=== PATIENT | female | born 1935 | race Caucasian/White ===

== ENCOUNTER 2018-07-29 12:03 | Inpatient (IN) ==
[2018-07-29 13:29] LABS: Basophils # 0.1 10*3/uL (0.0-0.2); Basophils % 0.4 % (0.0-0.8); Eosinophils # 0.1 10*3/uL (0.0-0.87); Eosinophils % 1.1 % (0.00-10.9); Hematocrit 40.1 VOL% (35.7-47.0); Hemoglobin 13.2 GM/DL (12.0-16.0); Immature Granulocytes % 0.6 %; Immature Granulocytes Absolute 0.07 #; Lymphocytes # 0.9 10*3/uL (1.4-4.0); Lymphocytes % 7.7 % (21.3-54.2); Mean Corpuscular HGB Conc 32.9 GM/DL (32-36); Mean Corpuscular Hemoglobin 28 PG (27-34); Mean Platelet Volume 11.2 FL (9.6-12.0); Monocytes # 0.5 10*3/uL (0.11-0.8); Monocytes % 4.3 % (1.7-12.7); Neutrophils # 9.7 10*3/uL (1.4-7.4); Neutrophils % 85.9 % (38.7-73.9); Platelet Count 155 T/CUMM (130-400); Red Blood Count 4.72 MC/CUMM (3.8-5.5); Red Cell Distribution Width 14.7 % (9.3-17.3); White Blood Count 11.3 T/CUMM (4-12)
[2018-07-29 13:41] LABS: INR 1.1; PT Patient Result 11.2 SECS; Partial Thromboplastin Time 23.4 SECS (0-40)
[2018-07-29 13:49] LABS: Alanine Aminotransferase 32 U/L (13-56); Albumin 3.6 G/DL (3.4-5.0); Alkaline Phosphatase 108 U/L (45-117); Aspartate Amino Transferase 25 U/L (0-37); Blood Urea Nitrogen 22 MG/DL (7-18); Calcium 9.2 MG/DL (8.5-10.1); Glucose 112 MG/DL (74-106); Osmolality,Calculated 280.5 MOS/KG (273-304); Sodium 139 MMOL/L (136-145); Total Protein 7.3 G/DL (6.4-8.3); Troponin I < 0.015 NG/ML (0.00-0.045)
[2018-07-29 13:59] LABS: Apearance,Urine CLEAR (Clear); Bacteria,Urine Few /HPF (Few); Bilirubin,Urine Negative (Negative); Blood, Urine Small mg/dL (Negative); Glucose,Urine (UA) Negative (Negative); Ketones,Urine 5 mg/dL (Negative); Mucus,Urine Occasional /LPF (Occasional); Nitrite,Urine Negative (Negative); Protein,Urine Negative; RBC,Urine 1 /HPF (0-4); Squamous Epithelial Cell,Urine Occasional /HPF (0-10); Urine Color Yellow (Yellow); Urine Specific Gravity 1.012 (1.001-1.035); Urine Urobilinogen < 2.0 EU/DL (0.2-1.0); WBC,Urine 1 /HPF (0-6)
[2018-07-30 06:04] LABS: Basophils % 0.7 % (0.0-0.8); Eosinophils # 0.4 10*3/uL (0.0-0.87); Eosinophils % 7.4 % (0.00-10.9); Hematocrit 36.6 VOL% (35.7-47.0); Immature Granulocytes % 0.2 %; Immature Granulocytes Absolute 0.01 #; Lymphocytes # 1.3 10*3/uL (1.4-4.0); Lymphocytes % 23.4 % (21.3-54.2); Mean Corpuscular HGB Conc 32.8 GM/DL (32-36); Mean Corpuscular Hemoglobin 28 PG (27-34); Mean Corpuscular Volume 85.1 FL (87-102); Mean Platelet Volume 11.7 FL (9.6-12.0); Monocytes # 0.5 10*3/uL (0.11-0.8); Monocytes % 8.3 % (1.7-12.7); Neutrophils # 3.3 10*3/uL (1.4-7.4); Platelet Count 132 T/CUMM (130-400); Red Cell Distribution Width 14.9 % (9.3-17.3); White Blood Count 5.6 T/CUMM (4-12)
[2018-07-30 06:34] LABS: Calcium 8.1 MG/DL (8.5-10.1); Osmolality,Calculated 275.7 MOS/KG (273-304); Potassium 3.9 MMOL/L (3.5-5.1); Risk Ratio 2.52; Thyroid Stimulating Hormone 3.51 uIU/ml (0.358-3.74); VLDL CHOLESTEROL 14.4 MG/DL
[2018-07-31 06:23] LABS: Basophils # 0.1 10*3/uL (0.0-0.2); Basophils % 0.8 % (0.0-0.8); Eosinophils # 0.3 10*3/uL (0.0-0.87); Eosinophils % 4.8 % (0.00-10.9); Hematocrit 33.8 VOL% (35.7-47.0); Immature Granulocytes % 0.2 %; Immature Granulocytes Absolute 0.01 #; Lymphocytes % 15.4 % (21.3-54.2); Mean Corpuscular HGB Conc 32.5 GM/DL (32-36); Mean Corpuscular Hemoglobin 28 PG (27-34); Mean Corpuscular Volume 86.9 FL (87-102); Mean Platelet Volume 11.2 FL (9.6-12.0); Monocytes # 0.6 10*3/uL (0.11-0.8); Monocytes % 9.4 % (1.7-12.7); Neutrophils # 4.3 10*3/uL (1.4-7.4); Neutrophils % 69.4 % (38.7-73.9); Platelet Count 117 T/CUMM (130-400); Red Blood Count 3.89 MC/CUMM (3.8-5.5); Red Cell Distribution Width 14.7 % (9.3-17.3); White Blood Count 6.3 T/CUMM (4-12)
[2018-07-31 06:57] LABS: Osmolality,Calculated 278.4 MOS/KG (273-304); Potassium 3.4 MMOL/L (3.5-5.1)
[2018-08-01 05:48] LABS: Basophils % 0.5 % (0.0-0.8); Eosinophils # 0.4 10*3/uL (0.0-0.87); Eosinophils % 5.5 % (0.00-10.9); Hematocrit 34.3 VOL% (35.7-47.0); Hemoglobin 10.9 GM/DL (12.0-16.0); Immature Granulocytes % 0.6 %; Immature Granulocytes Absolute 0.04 #; Lymphocytes # 1.1 10*3/uL (1.4-4.0); Mean Corpuscular HGB Conc 31.8 GM/DL (32-36); Mean Corpuscular Hemoglobin 28 PG (27-34); Mean Corpuscular Volume 86.6 FL (87-102); Mean Platelet Volume 11.7 FL (9.6-12.0); Monocytes # 0.5 10*3/uL (0.11-0.8); Monocytes % 8.2 % (1.7-12.7); Neutrophils # 4.5 10*3/uL (1.4-7.4); Neutrophils % 69.2 % (38.7-73.9); Platelet Count 128 T/CUMM (130-400); Red Blood Count 3.96 MC/CUMM (3.8-5.5); Red Cell Distribution Width 14.8 % (9.3-17.3); White Blood Count 6.6 T/CUMM (4-12)
[2018-08-01 06:10] LABS: Calcium 8.2 MG/DL (8.5-10.1); Osmolality,Calculated 278.7 MOS/KG (273-304); Potassium 3.8 MMOL/L (3.5-5.1)
[2018-08-01 11:48] VITALS: BP 134/73
== END 2018-08-01 13:04 | disposition home health service (06) | DRG 470 ==
LOC: N.ED 12:03 → N.EDINP 14:49 → N.3E 15:29
PROVIDERS: ADMIT Internal Medicine; ATTEND Internal Medicine

== ENCOUNTER 2020-05-25 05:15 | Inpatient (IN) ==
[2020-05-19 10:56] LABS: Basophils # 0.1 10*3/uL (0.0-0.2); Basophils % 0.9 % (0.0-0.8); Eosinophils # 0.2 10*3/uL (0.0-0.87); Eosinophils % 3.2 % (0.00-10.9); Hematocrit 39.3 VOL% (35.7-47.0); Hemoglobin 12.6 GM/DL (12.0-16.0); Immature Granulocytes % 0.5 %; Immature Granulocytes Absolute 0.03 #; Lymphocytes # 1.1 10*3/uL (1.4-4.0); Lymphocytes % 20.2 % (21.3-54.2); Mean Corpuscular HGB Conc 32.1 GM/DL (32-36); Mean Corpuscular Volume 89.1 FL (87-102); Mean Platelet Volume 11.2 FL (9.6-12.0); Monocytes % 10.5 % (1.7-12.7); Neutrophils % 64.7 % (38.7-73.9); Platelet Count 159 T/CUMM (130-400); Red Blood Count 4.41 MC/CUMM (3.8-5.5); Red Cell Distribution Width 13.9 % (9.3-17.3); White Blood Count 5.6 T/CUMM (4-12)
[2020-05-19 11:13] LABS: PT Patient Result 10.8 SECS (9.8-11.9); Partial Thromboplastin Time 27.8 SECS (23.9-33.8)
[2020-05-19 11:24] LABS: Apearance,Urine CLOUDY (Clear); Bacteria,Urine Many /HPF (Few); Bilirubin,Urine Negative (Negative); Blood, Urine Negative (Negative); Glucose,Urine (UA) Negative (Negative); Ketones,Urine Negative (Negative); Mucus,Urine Occasional /LPF (Occasional); Nitrite,Urine Negative (Negative); Protein,Urine Negative; RBC,Urine 1 /HPF (0-4); Squamous Epithelial Cell,Urine Occasional /HPF (0-10); Urine Color Amber (Yellow); Urine Specific Gravity 1.019 (1.001-1.035); Urine Urobilinogen < 2.0 EU/DL (0.2-1.0); WBC,Urine 5 /HPF (0-6)
[2020-05-19 11:34] LABS: Albumin 3.4 G/DL (3.4-5.0); Calcium 9.1 MG/DL (8.5-10.1); Osmolality,Calculated 279.7 MOS/KG (273-304); Total Protein 7.8 G/DL (6.4-8.3)
[2020-05-25] MEDS ORDERED: ceFAZolin 1,000 MG VIAL ONE (05:53)
[2020-05-25] MEDS ORDERED: VANCOMYCIN 1,000 MG VIAL ONE (05:53)
[2020-05-25] MEDS ORDERED: LACTATED RINGERS 1,000 ML IV SCH (06:30)
[2020-05-25] MEDS ORDERED: ROPIVACAINE 0.5% 30 ML VIAL ONE (06:38)
[2020-05-25] MEDS ORDERED: LIDOCAINE 1% 5 ML VIAL ONE (06:38)
[2020-05-25] MEDS ORDERED: DEXMEDETOMIDINE 200 MCG/2 ML VIAL ONE (06:38)
[2020-05-25] MEDS ORDERED: DEXAMETHASONE 4 MG/1 ML VIAL ONE ×2 (06:39→08:46)
[2020-05-25] MEDS ORDERED: TRANEXAMIC ACID 1,000 MG/10 ML VIAL ONE (07:38)
[2020-05-25] MEDS ORDERED: ONDANSETRON 4 MG/2 ML VIAL IV PRN (08:24)
[2020-05-25] MEDS ORDERED: DEXTROSE 50% 25 GM/50 ML VIAL IV PRN (08:24)
[2020-05-25] MEDS ORDERED: ZALEPLON 5 MG CAPSULE PO PRN (08:24)
[2020-05-25] MEDS ORDERED: MORPHINE 4 MG/1 ML VIAL IV PRN ×2 (08:24)
[2020-05-25] MEDS ORDERED: MAGNESIUM HYDROXIDE SUSP 30 ML UDCUP PO PRN (08:24)
[2020-05-25] MEDS ORDERED: GLUCAGON 1 MG VIAL IM PRN (08:24)
[2020-05-25] MEDS ORDERED: oxyCODONE/ACETAMINOPHEN 5-325 MG TABLET PO PRN (08:24)
[2020-05-25] MEDS ORDERED: ceFAZolin 1,000 MG in SYRINGE 1 EACH IV ONE (08:30)
[2020-05-25] MEDS ORDERED: MIDAZOLAM 2 MG/2 ML VIAL ONE (08:46)
[2020-05-25] MEDS ORDERED: ONDANSETRON 4 MG/2 ML VIAL ONE (08:46)
[2020-05-25] MEDS ORDERED: GLYCOPYRROLATE 0.4 MG/2 ML VIAL ONE (08:46)
[2020-05-25] MEDS ORDERED: BUPIVACAINE SPINAL 0.75% 2 ML AMP SPINAL ONE (08:47)
[2020-05-25] MEDS ORDERED: PHENYLEPHRINE 1 MG/10 ML SYRINGE IV ONE (08:47)
[2020-05-25] MEDS ORDERED: VANCOMYCIN INJ 1,000 MG in SODIUM CHLORIDE 0.9% 250 ML IV ONE (09:00)
[2020-05-25] MEDS: ceFAZolin 1,000 MG in SYRINGE 1 EACH IV SCH ×2 (14:11→20:34)
[2020-05-25] MEDS: DOCUSATE SODIUM 100 MG CAPSULE PO SCH ×2 (14:12→20:35)
[2020-05-25] MEDS: INSULIN LISPRO 100 UNIT/ML SUBCUT SCH ×3 (15:33→22:12)
[2020-05-25] MEDS: DIGOXIN 0.125 MG TABLET PO SCH (15:49)
[2020-05-25] MEDS: KETOROLAC 15 MG/1 ML VIAL IV SCH ×2 (15:50→20:34)
[2020-05-25] MEDS: LACTATED RINGERS 1,000 ML IV SCH ×2 (15:51→20:36)
[2020-05-25] MEDS: metFORMIN 500 MG TABLET PO SCH (19:56)
[2020-05-26] MEDS: KETOROLAC 15 MG/1 ML VIAL IV SCH ×2 (00:22→06:44)
[2020-05-26] MEDS: LACTATED RINGERS 1,000 ML IV SCH (04:38)
[2020-05-26 05:09] LABS: Basophils % 0.4 % (0.0-0.8); Eosinophils % 0.1 % (0.00-10.9); Hematocrit 31.8 VOL% (35.7-47.0); Hemoglobin 10.1 GM/DL (12.0-16.0); Immature Granulocytes % 0.3 %; Immature Granulocytes Absolute 0.02 #; Lymphocytes # 1.1 10*3/uL (1.4-4.0); Lymphocytes % 16.5 % (21.3-54.2); Mean Corpuscular HGB Conc 31.8 GM/DL (32-36); Mean Corpuscular Volume 87.8 FL (87-102); Mean Platelet Volume 10.8 FL (9.6-12.0); Monocytes % 9.8 % (1.7-12.7); Neutrophils % 72.9 % (38.7-73.9); Platelet Count 158 T/CUMM (130-400); Red Blood Count 3.62 MC/CUMM (3.8-5.5); White Blood Count 6.7 T/CUMM (4-12)
[2020-05-26 05:31] LABS: Calcium 8.3 MG/DL (8.5-10.1); Osmolality,Calculated 276.8 MOS/KG (273-304)
[2020-05-26] MEDS: FONDAPARINUX 2.5 MG/0.5 ML SYRINGE SUBCUT SCH (06:04)
[2020-05-26] MEDS: CYANOCOBALAMIN 500 MCG TABLET PO SCH (08:10)
[2020-05-26] MEDS: DIGOXIN 0.125 MG TABLET PO SCH (08:10)
[2020-05-26] MEDS: INSULIN LISPRO 100 UNIT/ML SUBCUT SCH ×4 (08:11→20:56)
[2020-05-26] MEDS: metFORMIN 500 MG TABLET PO SCH ×2 (08:11→16:57)
[2020-05-26] MEDS: DOCUSATE SODIUM 100 MG CAPSULE PO SCH ×2 (08:11→20:56)
[2020-05-26] MEDS ORDERED: ACETAMINOPHEN 325 MG TABLET PO PRN (08:26)
[2020-05-26] MEDS: oxyCODONE/ACETAMINOPHEN 5-325 MG TABLET PO PRN (23:03)
[2020-05-27 04:14] LABS: Basophils % 0.5 % (0.0-0.8); Eosinophils # 0.1 10*3/uL (0.0-0.87); Hematocrit 28.9 VOL% (35.7-47.0); Hemoglobin 9.3 GM/DL (12.0-16.0); Immature Granulocytes % 0.4 %; Immature Granulocytes Absolute 0.02 #; Lymphocytes # 1.6 10*3/uL (1.4-4.0); Lymphocytes % 28.1 % (21.3-54.2); Mean Corpuscular HGB Conc 32.2 GM/DL (32-36); Mean Corpuscular Volume 88.4 FL (87-102); Mean Platelet Volume 10.6 FL (9.6-12.0); Monocytes % 10.3 % (1.7-12.7); Neutrophils % 58.7 % (38.7-73.9); Platelet Count 137 T/CUMM (130-400); Red Blood Count 3.27 MC/CUMM (3.8-5.5); Red Cell Distribution Width 14.3 % (9.3-17.3); White Blood Count 5.6 T/CUMM (4-12)
[2020-05-27 04:52] LABS: Hypochromasia 1+; Microcytosis 1+
[2020-05-27 04:53] LABS: Platelet Estimate Adequate
[2020-05-27] MEDS: FONDAPARINUX 2.5 MG/0.5 ML SYRINGE SUBCUT SCH (05:30)
[2020-05-27] MEDS: INSULIN LISPRO 100 UNIT/ML SUBCUT SCH ×3 (10:13→16:22)
[2020-05-27] MEDS: metFORMIN 500 MG TABLET PO SCH ×2 (10:14→16:22)
[2020-05-27] MEDS: DOCUSATE SODIUM 100 MG CAPSULE PO SCH (10:14)
[2020-05-27] MEDS: oxyCODONE/ACETAMINOPHEN 5-325 MG TABLET PO PRN (10:14)
[2020-05-27] MEDS: CYANOCOBALAMIN 500 MCG TABLET PO SCH (10:15)
[2020-05-27] MEDS: DIGOXIN 0.125 MG TABLET PO SCH (10:15)
[2020-05-27 16:07] VITALS: BP 140/66
== END 2020-05-27 16:45 | disposition home health service (06) | DRG 470 ==
LOC: N.OR 05:15 → N.SDSINP 05:18 → N.3E 12:20
PROVIDERS: ADMIT Orthopaedic Surgery; ATTEND Orthopaedic Surgery

== ENCOUNTER 2020-11-29 03:10 | Inpatient (IN) ==
[2020-11-29] MEDS ORDERED: ONDANSETRON 4 MG/2 ML VIAL IV STA (03:47)
[2020-11-29] MEDS ORDERED: HYDROmorphone 2 MG/1 ML VIAL IV STA (03:47)
[2020-11-29 04:47] LABS: Alanine Aminotransferase 25 U/L (13-56); Albumin 3.2 G/DL (3.4-5.0); Alkaline Phosphatase 88 U/L (45-117); Aspartate Amino Transferase 24 U/L (0-37); Blood Urea Nitrogen 21 MG/DL (7-18); Calcium 8.8 MG/DL (8.5-10.1); Estimated Glom Filtration Rate 51 ML/MIN; Glucose 123 MG/DL (74-106); Osmolality,Calculated 278.7 MOS/KG (273-304); Total Protein 7.2 G/DL (6.4-8.3)
[2020-11-29] MEDS ORDERED: ONDANSETRON 4 MG/2 ML VIAL IV PRN (05:23)
[2020-11-29] MEDS ORDERED: GLUCAGON 1 MG VIAL IM PRN (05:23)
[2020-11-29] MEDS ORDERED: DEXTROSE 50% 25 GM/50 ML VIAL IV PRN (05:23)
[2020-11-29] MEDS ORDERED: MEPERIDINE 25 MG/1 ML VIAL IV PRN (05:28)
[2020-11-29 05:54] LABS: Basophils % 0.4 % (0.0-0.8); Eosinophils # 0.1 10*3/uL (0.0-0.87); Eosinophils % 1.2 % (0.00-10.9); Hematocrit 38.7 VOL% (35.7-47.0); Immature Granulocytes % 0.7 %; Immature Granulocytes Absolute 0.06 #; Lymphocytes # 0.6 10*3/uL (1.4-4.0); Lymphocytes % 6.9 % (21.3-54.2); Mean Corpuscular Volume 80.3 FL (87-102); Mean Platelet Volume 10.9 FL (9.6-12.0); Monocytes % 6.2 % (1.7-12.7); Neutrophils % 84.6 % (38.7-73.9); Platelet Count 158 T/CUMM (130-400); Red Blood Count 4.82 MC/CUMM (3.8-5.5); Red Cell Distribution Width 19.3 % (9.3-17.3); White Blood Count 9.2 T/CUMM (4-12)
[2020-11-29 06:01] LABS: INR 1.1; PT Patient Result 11.9 SECS (9.8-11.9)
[2020-11-29 06:55] LABS: Bacteria,Urine Occasional /HPF (Few); Bilirubin,Urine Negative (Negative); Blood, Urine Negative (Negative); Glucose,Urine (UA) Negative (Negative); Ketones,Urine Negative (Negative); Mucus,Urine Occasional /LPF (Occasional); Nitrite,Urine Positive (Negative); Protein,Urine Negative; RBC,Urine 1 /HPF (0-4); Squamous Epithelial Cell,Urine Occasional /HPF (0-10); Urine Appearance Slightly Hazy (Clear); Urine Color Yellow (Yellow); Urine Specific Gravity 1.015 (1.001-1.035); WBC,Urine 3 /HPF (0-6)
[2020-11-29] MEDS: INSULIN REGULAR 100 UNIT/ML SUBCUT SCH ×4 (08:08→20:16)
[2020-11-29] MEDS ORDERED: VANCOMYCIN INJ 1,000 MG in SODIUM CHLORIDE 0.9% 250 ML IV ONE (08:25)
[2020-11-29] MEDS ORDERED: ceFAZolin 1,000 MG in SYRINGE 1 EACH IV ONE (08:25)
[2020-11-29] MEDS: BISOPROLOL 5 MG TABLET PO SCH (08:35)
[2020-11-29] MEDS: ASPIRIN EC 81 MG TABLET PO SCH (08:50)
[2020-11-29] MEDS: DIGOXIN 0.125 MG TABLET PO SCH (08:50)
[2020-11-29] MEDS: CYANOCOBALAMIN 500 MCG TABLET PO SCH (08:51)
[2020-11-29] MEDS ORDERED: HYDROmorphone 2 MG/1 ML VIAL IV PRN (08:59)
[2020-11-29] MEDS ORDERED: LACTATED RINGERS 1,000 ML IV SCH (09:00)
[2020-11-29] MEDS: cefTRIAXone 1,000 MG in SYRINGE 1 EACH IV SCH (09:41)
[2020-11-29] MEDS ORDERED: DEXAMETHASONE 4 MG/1 ML VIAL ONE (10:23)
[2020-11-29] MEDS ORDERED: ROPIVACAINE 0.5% 30 ML VIAL ONE (10:23)
[2020-11-29] MEDS ORDERED: DEXMEDETOMIDINE 200 MCG/2 ML VIAL ONE (10:24)
[2020-11-29] MEDS ORDERED: LIDOCAINE 1% 5 ML VIAL ONE (10:24)
[2020-11-29] MEDS ORDERED: BACITRACIN OINT 0.9 GM PACK TOP ONE (10:41)
[2020-11-29] MEDS ORDERED: KETAMINE 500 MG/10 ML VIAL ONE (11:07)
[2020-11-29] MEDS ORDERED: BUPIVACAINE SPINAL 0.75% 2 ML AMP SPINAL ONE (11:07)
[2020-11-29] MEDS ORDERED: PHENYLEPHRINE 10 MG/1 ML VIAL IV ONE (11:10)
[2020-11-29] MEDS ORDERED: oxyCODONE IR 5 MG TABLET PO PRN (11:38)
[2020-11-29] MEDS ORDERED: MAGNESIUM HYDROXIDE SUSP 30 ML UDCUP PO PRN (11:38)
[2020-11-29] MEDS ORDERED: propofoL 200 MG/20 ML VIAL IV ONE (11:54)
[2020-11-29] MEDS ORDERED: ETOMIDATE 40 MG/20 ML VIAL IV ONE (11:55)
[2020-11-29] MEDS ORDERED: TRANEXAMIC ACID 1,000 MG/10 ML VIAL ONE (12:35)
[2020-11-29] MEDS ORDERED: ONDANSETRON 4 MG/2 ML VIAL ONE (12:38)
[2020-11-29] MEDS ORDERED: SODIUM CHLORIDE 0.9% 200 ML IV ONE (12:38)
[2020-11-29] MEDS: ceFAZolin 1,000 MG in SYRINGE 1 EACH IV SCH ×2 (14:24→23:13)
[2020-11-29] MEDS: oxyCODONE IR 5 MG TABLET PO PRN ×2 (17:34→23:14)
[2020-11-29] MEDS: DOCUSATE SODIUM 100 MG CAPSULE PO SCH (20:16)
[2020-11-30 05:18] LABS: Basophils % 0.3 % (0.0-0.8); Hemoglobin 10.7 GM/DL (12.0-16.0); Immature Granulocytes % 0.1 %; Immature Granulocytes Absolute 0.01 #; Lymphocytes # 0.8 10*3/uL (1.4-4.0); Lymphocytes % 10.1 % (21.3-54.2); Mean Corpuscular HGB Conc 31.5 GM/DL (32-36); Mean Corpuscular Volume 79.3 FL (87-102); Mean Platelet Volume 11.5 FL (9.6-12.0); Monocytes % 9.7 % (1.7-12.7); Neutrophils % 79.8 % (38.7-73.9); Platelet Count 159 T/CUMM (130-400); Red Blood Count 4.29 MC/CUMM (3.8-5.5); White Blood Count 7.5 T/CUMM (4-12)
[2020-11-30 05:35] LABS: Calcium 8.4 MG/DL (8.5-10.1); Osmolality,Calculated 273.1 MOS/KG (273-304)
[2020-11-30] MEDS: FONDAPARINUX 2.5 MG/0.5 ML SYRINGE SUBCUT SCH (05:42)
[2020-11-30] MEDS: INSULIN REGULAR 100 UNIT/ML SUBCUT SCH ×4 (07:10→20:23)
[2020-11-30] MEDS: oxyCODONE IR 5 MG TABLET PO PRN ×4 (07:22→23:32)
[2020-11-30] MEDS: ASPIRIN EC 81 MG TABLET PO SCH (08:21)
[2020-11-30] MEDS: cefTRIAXone 1,000 MG in SYRINGE 1 EACH IV SCH (08:21)
[2020-11-30] MEDS: BISOPROLOL 5 MG TABLET PO SCH (08:22)
[2020-11-30] MEDS: CYANOCOBALAMIN 500 MCG TABLET PO SCH (08:22)
[2020-11-30] MEDS: DOCUSATE SODIUM 100 MG CAPSULE PO SCH ×2 (08:22→20:24)
[2020-11-30] MEDS: DIGOXIN 0.125 MG TABLET PO SCH (08:22)
[2020-12-01] MEDS: FONDAPARINUX 2.5 MG/0.5 ML SYRINGE SUBCUT SCH (06:07)
[2020-12-01 06:09] LABS: Basophils % 0.4 % (0.0-0.8); Eosinophils # 0.1 10*3/uL (0.0-0.87); Eosinophils % 0.9 % (0.00-10.9); Hematocrit 32.8 VOL% (35.7-47.0); Hemoglobin 10.5 GM/DL (12.0-16.0); Immature Granulocytes % 0.6 %; Immature Granulocytes Absolute 0.04 #; Lymphocytes % 14.2 % (21.3-54.2); Mean Corpuscular Volume 78.1 FL (87-102); Mean Platelet Volume 10.9 FL (9.6-12.0); Monocytes % 13.3 % (1.7-12.7); Neutrophils % 70.6 % (38.7-73.9); Platelet Count 138 T/CUMM (130-400); Red Cell Distribution Width 19.3 % (9.3-17.3); White Blood Count 6.8 T/CUMM (4-12)
[2020-12-01] MEDS: INSULIN REGULAR 100 UNIT/ML SUBCUT SCH (07:38)
[2020-12-01] MEDS: cefTRIAXone 1,000 MG in SYRINGE 1 EACH IV SCH (10:46)
[2020-12-01] MEDS: BISOPROLOL 5 MG TABLET PO SCH (10:47)
[2020-12-01] MEDS: oxyCODONE IR 5 MG TABLET PO PRN (10:47)
[2020-12-01] MEDS: CYANOCOBALAMIN 500 MCG TABLET PO SCH (10:47)
[2020-12-01] MEDS: ASPIRIN EC 81 MG TABLET PO SCH (10:48)
[2020-12-01] MEDS: DOCUSATE SODIUM 100 MG CAPSULE PO SCH (10:48)
[2020-12-01] MEDS: DIGOXIN 0.125 MG TABLET PO SCH (10:48)
[2020-12-01 11:16] VITALS: BP 112/60
== END 2020-12-01 14:42 | disposition home health service (06) | DRG 522 ==
LOC: EDBD → EDUNIT# → N.ED 03:10 → N.EDINP 05:23 → N.3E 06:15
PROVIDERS: ADMIT Internal Medicine; ATTEND Internal Medicine